=== PATIENT | male | born 1945 | race Caucasian/White ===

== ENCOUNTER 2021-02-03 08:48 | Outpatient (CLI) | payer MEDICARE, SELFPAY ==
--- NOTE | 2021-02-03 09:05 | XR_ITS ---
WS: [id number] Exam: XR hip RT 2-3V wo/w pel* [id number] Date/Time of Exam: 02/03/2021 9:07 AM Reason For Exam: PAIN IN RIGHT HIP No acute fracture or dislocation. There is end stage osteoarthritis with [id number] articulation. Subcortical cyst formation in the femoral head and the acetabulum. Prominent marginal osteophyte proj ects from the superior lateral acetabulum. Normal soft tissues. XR/XR hip RT 2-3V wo/w pel* [id number] IMPRESSION: 1. 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
== END 2021-02-03 08:49 | disposition home or self-care (01) ==
PROVIDERS: PCP Family Medicine; Visit Provider Family Medicine
DX: M25.551 Pain in right hip (principal); M16.11 Unilateral primary osteoarthritis, right hip
CPT/HCPCS: 73502

== ENCOUNTER 2021-03-07 14:44 | Outpatient (CLI) | payer MEDICARE, SELFPAY ==
--- NOTE | 2021-03-07 14:56 | USCV_ITS ---
CachorroRajan wagner Age: 75 Gender: M : 1945 Exam Date: 03/07/2021 15:27 Ordering Phys: Gabriela Russo MD Technologist: Marisa Guzman Exam Location: [facility] [place] Indication: PAIN IN RT LEG HISTORY: Pain in Rt Leg with some swelling PROCEDURES: Venous duplex imaging was performed in only the right lower extremity. The following venous structures were evaluated: common femoral vein, profunda vein, proximal portion of the greater saphenous vein, superficial femoral vein, and the popliteal vein. In addition, the posterior tibial and peroneal trunk were evaluated. Serial compression, augmentation maneuvers, and spectral Doppler flow evaluation were performed. FINDINGS: Normal 2-D Doppler and augmentation and compressibility throughout the lower extremity venous structures. Additional imaging through the proximal calf veins also reveals no thrombus. Limited evaluation of the greater saphenous vein is patent with no thrombus.. CONCLUSIONS No evidence of right lower extremity DVT. Maxwell Faustin MD (Electronically Signed) Final Date: 07 March 2021 17:48 S
== END 2021-03-07 14:45 | disposition home or self-care (01) ==
PROVIDERS: PCP Family Medicine; Visit Provider Family Medicine
DX: M79.661 Pain in right lower leg (principal)
CPT/HCPCS: 93971

== ENCOUNTER 2021-05-14 12:33 | Emergency (ER) | payer MEDICARE, SELFPAY ==
[2021-05-14 13:02] VITALS: BP 125/76; PULSE 89; RESP 15; TEMP 36.8; O2SAT 93; BMI 37.3
--- NOTE | 2021-05-14 13:10 | USR_ITS ---
PROCEDURE INFORMATION: Exam: US Duplex Right Lower Extremity Veins, Limited Exam date and time: 05/14/2021 1:10 PM Age: 75 years old Clinical indication: Pain; Swelling (edema) of limb; Lower extremity, right; Leg, lower; Prior surgery; Surgery date: <1 month; Surgery type: Right hip replacement 05-04-21; Additional info: R leg pain and swelling, right hip replaced 4 days postop TECHNIQUE: Imaging protocol: Real-time Duplex ultrasound of the Right Lower Extremity with 2-D hwang scale, color Doppler flow and spectral waveform analysis with image documentation. Limited exam was focused on the right lower extremity veins. Total images: 30 COMPARISON: CT Abdomen/Pelvis Renal [id number] 11/05/2018 6:27 AM FINDINGS: Right deep veins: Unremarkable. The common femoral, femoral, proximal profunda femoral and popliteal veins are patent without thrombus. Normal Doppler waveforms. Normal compressibility and/or augmentation response. Right superficial veins: Unremarkable. Saphenofemoral junction is patent without thrombus. Soft tissues: Subcutaneous edema noted in the right [place]. US/[place] [id number] IMPRESSION: No evidence of deep vein thrombosis.
--- NOTE | 2021-05-14 15:20 | ED_ITS ---
HPI - Extremity Problem General: Chief complaint: Extremity Problem,Nontraumatic Stated complaint: R. LEG PAIN/POSS BLOOD CLOT Time Seen by Provider: 05/14/21 15:13 History of Present Illness: HPI Narrative: Patient is a 75-year-old male comes to the ED with right leg pain and swelling. Patient had hip replacement surgery in [place] by Dr. Villalta on May 04. Patient was sent here to check for possible blood clot. Patient says the day before he had a very intense physical therapy session that he thinks worsened his right hip pain. Denies any chest pain, shortness of breath or hemoptysis. Associated symptoms: Deny chest pain, fever(s) or rash Review of Systems Const: Denies: fever(s), chills or fatigue Eyes: Denies: change in vision or eye discomfort ENMT: Denies: throat pain, odynophagia, nasal discharge or nasal congestion Card: Denies: chest pain, palpitations, edema, swelling of feet/ankles, dyspnea on exertion or orthopnea Resp: Denies: dyspnea, productive cough or non-productive cough GI: Denies: abdominal pain, nausea, vomiting, diarrhea, constipation or hematochezia : Denies: flank pain, difficulty urinating, dysuria or hematuria Musc: Reports: extremity pain (Right leg pain and swelling.); Denies: neck pain, back pain or extremity swelling Skin/Breast: Denies: rash or new lesions Neuro: Denies: headache(s), numbness in extremities or weakness in extremities Physical Exam Const: COMMON NORMALS: no acute distress, patient oriented x3 and alert GENERAL APPEARANCE: cooperative and comfortable HENMT: COMMON NORMALS: normocephalic HEAD & SCALP: normocephalic MOUTH: Normal oral and palatal mucosa present THROAT: posterior oropharynx normal and uvula midline Neck/C-Spine: COMMON NORMALS: supple GENERAL: Yes normal visual inspection Resp: COMMON NORMALS: normal respiratory effort, No retractions, No use of accessory muscles and clear to auscultation bilaterally AUSCULTATION: clear to auscultation bilaterally Cardio: COMMON NORMALS: regular rate, regular rhythm, S1 normal heart sound present, S2 normal heart sound present, No gallops present (Cardio), No clicks present (Cardio), No murmurs present (Cardio) and Peripheral pulses 2+ throughout RATE: regular rate RHYTHM: regular rhythm HEART SOUNDS: S1 normal heart sound present and S2 normal heart sound present PERIPHERAL PULSES: Peripheral pulses 2+ throughout GI: COMMON NORMALS: Normal to inspection, nondistended, normoactive bowel sounds present, Soft to palpation, non-tender and no masses PALPATION: Yes Soft to palpation : COMMON NORMALS: Yes no CVA tenderness BLADDER/KIDNEY EXAM: Yes no CVA tenderness Back/Pelvis: COMMON NORMALS: no CVA tenderness Extremity: GENERAL: Yes normal exam except as noted, Yes calf tenderness (Mild right calf tenderness.) and Yes edema (1+ edema-right lower extremity. Left lower extremity normal) Neuro: COMMON NORMALS: patient oriented x3 and moves all extremities SENSORIUM/ORIENTATION: Yes alert Skin: GENERAL SKIN EXAM: dry skin Course Vital Signs: Vital signs: Vital Signs Temperature 98.2 F 05/14/21 13:02 Pulse Rate 73 05/14/21 15:48 Respiratory Rate 20 H 05/14/21 15:48 Blood Pressure 142/80 05/14/21 15:48 Pulse Oximetry 96 05/14/21 15:48 MDM - Extremity (Nontraumatic) MDM Narrative: Medical decision making narrative: Patient is a 75-year-old male comes to the ED with right leg swelling and pain. He is approximately week and a half postop right hip replacement surgery. Denies any chest pain, shortness of breath or hemoptysis. He was sent here to the ED for evaluation of high blood clot. Patient has 1+ pitting edema in right lower extremity. Ultrasound venous duplex of right lower extremity showed no DVTs or blood clots. Patient diagnosed pain and swelling of right lower extremity discharged home. Is told to follow-up with his surgeon his next appointment on Saturday, May 17. Return to ED precautions given. Patient understood agree with plan. Imaging Data^: US Vascular: Attestation: I personally reviewed and interpreted this imaging study as follows: Radiologist's impression: Rajan Ivory 75 M [address] [id number] ReportSigned Patient: Rajan Ivory HUnit #: [id number]: 4Acct#:[id number]/Sex: 75 / MADM Date: 05/14/21Loc: ERRoom/Bed:Attending Dr: Ordering Provider/Ordering MD: José Antonio Cruz Date of Service: 05/14/21 Procedure(s): [place] [address] Accession Number(s): [id number] Report Number: [id number] PROCEDURE INFORMATION: Exam: US Duplex Right Lower Extremity Veins, Limited Exam date and time: 05/14/2021 1:10 PM Age: 75 years old Clinical indication: Pain; Swelling (edema) of limb; Lower extremity, right; Leg, lower; Prior surgery; Surgery date: <1 month; Surgery type: Right hip replacement 05-04-21; Additional info: R leg pain and swelling, right hip replaced 4 days postop TECHNIQUE: Imaging protocol: Real-time Duplex ultrasound of the Right Lower Extremity with 2-D hwang scale, color Doppler flow and spectral waveform analysis with image documentation. Limited exam was focused on the right lower extremity veins. Total images: 30 COMPARISON: CT Abdomen/Pelvis Renal [id number] 11/05/2018 6:27 AM FINDINGS: Right deep veins: Unremarkable. The common femoral, femoral, proximal profunda femoral and popliteal veins are patent without thrombus. Normal Doppler waveforms. Normal compressibility and/or augmentation response. Right superficial veins: Unremarkable. Saphenofemoral junction is patent without thrombus. Soft tissues: Subcutaneous edema noted in the right calf. US/[place] [id number] IMPRESSION: No evidence of deep vein thrombosis. Dictated By:Jackson Morales MDSigned By:Jackson Morales MDSigned Date/Time:05/14/21 1440DD/ 1438 Discharge Plan Discharge Patient Disposition: Home Clinical Impression: Pain and swelling of right lower extremity Condition: Stable Discharge Orders: Discharge ED (Routine); Ordered 05/14/21 Ordered By: José Antonio Cruz Referrals: Gabriela Russo MD [Primary Care Provider] - Discharge Diet: Regular Discharge Activity: Increase activity as tolerated Patient Instructions: Leg Edema (ED) Activity Restrictions/Additional Instructions: Follow-up with medical provider at your next scheduled appointment on Saturday, May 17. Continue taking your previously prescribed pain medication as needed. You can rest and elevate right leg to help the swelling. Return to the ER or your medical provider if condition worsens. Please read and understand discharge instructions. Thank you for choosing [facility] for your healthcare needs today. Please realize this is an emergency room and that we are providing you with a medical screening exam and this may not be complete and all inclusive of all the testing and or work up that you may need to determine your ailment or severity of your illness. It is very important that you follow up as instructed or that you return to the Emergency Department should you have concerns or if your condition changes or worsens in any way. Coding Level of Care Code ED [place] Printer for Melody Singletary Exam Comprehensive
[2021-05-14 15:48] VITALS: BP 142/80; PULSE 73; RESP 20; O2SAT 96
== END 2021-05-14 15:50 | disposition home or self-care (01) ==
PROVIDERS: Emergency Provider Physician Assistant; PCP Family Medicine
DX: M79.604 Pain in right leg (principal); M79.89 Other specified soft tissue disorders
CPT/HCPCS: 93971; 99281

== ENCOUNTER → 2025-01-04 10:56 | Outpatient (BNVA) | payer MEDICARE, SELFPAY | PROVIDERS: PCP Family Medicine; Referring Provider Student in an Organized Health Care Education/Training Program; Visit Provider Anesthesiology Pain Medicine | DX: M54.2 Cervicalgia (principal); M47.22 Other spondylosis with radiculopathy, cervical region | CPT/HCPCS: 72040; 99204 ==

== ENCOUNTER → 2025-01-13 13:27 | Outpatient (BNVA) | payer MEDICARE, SELFPAY | PROVIDERS: PCP Student in an Organized Health Care Education/Training Program; Visit Provider Anesthesiology Pain Medicine | DX: M79.18 Myalgia, other site (principal); M54.2 Cervicalgia | CPT/HCPCS: 20553; 99214; J1010; J3490 ==

== ENCOUNTER 2025-04-19 09:27 | Oncology outpatient (recurring) (ONCR) | payer MEDICARE, SELFPAY | END 2025-05-09 23:59 | disposition home or self-care (01) | PROVIDERS: PCP Student in an Organized Health Care Education/Training Program; Visit Provider Internal Medicine Medical Oncology | DX: C7A.8 Other malignant neuroendocrine tumors (principal); C7B.8 Other secondary neuroendocrine tumors; Z79.899 Other long term (current) drug therapy | CPT/HCPCS: 99204; 99205 ==

== ENCOUNTER 2025-04-20 10:07 | Day surgery (SDC) | payer MEDICARE, SELFPAY ==
[2025-04-20] VITALS (7 sets, daily range): BP systolic 113–140; BP diastolic 73–91; PULSE 74–87; RESP 16–17; TEMP 36.2–36.5; O2SAT 90–95; BMI 34.4
--- NOTE | 2025-04-20 10:18 | SC_ITS ---
WS: [id number] C-arm fluoroscopy for infusion catheter placement, 04/20/2025 Clinical Data: Port-A-Cath placement Comparison: Portable chest, 04/28/2018 Findings: Dr. Tadeo inserted a infusion port into the right internal jugular vein. SC/C-arm FL for CVA 51437 Impression: Insertion of right infusion catheter.
--- NOTE | 2025-04-20 10:52 | ANES.PREANE2 ---
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 Operation Date: 04/20/25 11:40 Proposed Procedures p Insertion Central Venous Access Device Port a Cath Insertion 16495 Z95.828 C7B.8(Not Applicable) - Sd Tadeo MD Was Beta Agnieszka taken within 24 hours: N/A Was Clonidine taken within 24 hours: N/A Last intake: Intake Last Liquid Date 04/19/25 Last Liquid Time 17:00 Last Solid Date 04/19/25 Last Solid Time 17:00 Social No alcohol and No tobacco Exam alert and oriented x 3 Airway Submandibular: within normal limits Cervical ROM: within normal limits Mallampati: Class III Comments: Comments: Edentulous Anesthetic Plan ASA status: 4 Anesthesia: MAC Other: No prior issues with anesthesia NPO since yesterday evening History of CKD MALCOLM, no treatment Patient denies a history of A-fib but is on diltiazem. 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 Patient most likely has metastatic disease to the lung Plan for chemotherapy for palliative treatment option of symptom control Plan for MAC anesthesia Medications/Allergies Home Medications ?Medication ?Instructions ?Recorded ?Confirmed ?Last Taken ?Type atorvastatin 10 mg tablet (Lipitor) 10 mg PO DAILY 01/04/25 04/19/25 04/19/25 History budesonide 160 mcg-glycopyr 9 2 inh inhalation BID 01/04/25 04/19/25 Unknown History mcg-formot 4.8 mcg/actuation HFA inhaler (Breztri Aerosphere) diltiazem HCl 180 mg 180 mg PO DAILY 01/04/25 04/19/25 04/20/25 History capsule,extended release 24 hr (Cartia XT) finasteride 5 mg tablet 5 mg PO DAILY 01/04/25 04/19/25 04/19/25 History gabapentin 100 mg tablet 100 mg PO TID 01/04/25 04/19/25 04/19/25 History meloxicam 15 mg tablet 15 mg PO DAILY 01/04/25 04/19/25 04/19/25 History metformin 500 mg tablet 1,000 mg PO BID 01/04/25 04/19/25 04/19/25 History montelukast 10 mg tablet 10 mg PO DAILY 01/04/25 04/19/25 04/19/25 History oxybutynin chloride 5 mg tablet 5 mg PO TID 01/04/25 04/19/25 04/19/25 History tamsulosin 0.4 mg capsule 0.4 mg PO DAILY 01/04/25 04/19/25 04/19/25 History morphine 15 mg immediate release 15 mg PO Q8H PRN pain 30 days #60 04/19/25 04/19/25 Unknown Rx tablet tabs ondansetron HCl 4 mg tablet 4 mg PO Q6H PRN nausea and 04/19/25 04/19/25 Unknown Rx vomiting #30 tabs oxycodone 10 mg tablet 5 mg PO DAILY 04/19/25 04/19/25 04/19/25 History prochlorperazine maleate 10 mg 10 mg PO Q4H PRN mild nausea #30 04/19/25 04/19/25 Unknown Rx tablet (Compazine) tabs Allergies Allergy/AdvReac Type Severity Reaction Status Date / Time hydromorphone (From Dilaudid) Allergy ADR-Nausea Verified 04/19/25 12:55 Iodinated Contrast Media Allergy ALGY-Hives Verified 04/19/25 12:55 [facility] Anesthesia Social History Smoking and tobacco/nicotine status: former use of tobacco/nicotine Data Anesthesia 04/20/25 10:55
--- NOTE | 2025-04-20 10:57 | ECG_ITS ---
[facility] Date: 2025-04-20 Pat Name: Rajan Ivory Department: Room: Gender: Male School Counsellor: : 1945 Requested By: Sd Clark Order Number: [id number] Sury MD: Haroon Gallegos M.D. Measurements Intervals [place] Rate: 89 P: 0 MO: 0 QRS: -11 QRSD: 80 T: 29 QT: 328 QTc: 400 Interpretive Statements NORMAL SINUS RHYTHM WITH PREMATURE ATRIAL CONTRACTIONS ABNORMAL RHYTHM ECG Compared to ECG 11/05/2018 03:10:13 VENTRICULAR PREMATURE COMPLEXES NO LONGER PRESENT Electronically Signed On 04-21-2025 22:25:55 CDT by Haroon Gallegos M.D. [email or web address]
[2025-04-20 11:12] LABS: Hematocrit 35.4 % (37-53); Hemoglobin 11.10 g/dL (11.27-16.99); Mean Corpuscular HGB Conc 31.4 g/dL (30-55); Mean Corpuscular Hemoglobin 28.4 pg (27-33); Mean Corpuscular Volume 90.5 fl (82-101); Nucleated Red Blood Cells % 0 %; Platelet Count 431 10^3/cmm (157-399); Red Blood Count 3.91 10^6/uL (3.85-5.65); White Blood Count 15.54 10^3/uL (3.29-11.43)
[2025-04-20 11:28] LABS: Blood Urea Nitrogen 22 mg/dL (8-23); Calcium 9.2 mg/dL (8.5-10.5); Carbon Dioxide 24 mmol/L (22-29); Chloride 99 mmol/L (98-107); Creatinine Clr Calc Pharmacy 38.3577; Glucose 170 mg/dL (65-115); Osmolality Calculated 289 mOsm/kg (285-295); Sodium 136 mmol/L (136-145)
[2025-04-20 11:29] LABS: Anion Gap 18.2 (5-19); Potassium 5.2 mmol/L (3.5-5.1)
--- NOTE | 2025-04-20 12:07 | W.PM.OPSUD ---
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
[2025-04-20] MEDS: ceFAZolin 2,000 mg SDV 2000 MG IVP (12:17)
[2025-04-20] MEDS: heparin, porcine 1,000 unit/mL INJ 10 mL 10000 UNIT IRRIGATION (12:27)
[2025-04-20] MEDS: BUPivacaine 0.25% INJ 10 mL INJECTION (12:41)
[2025-04-20] MEDS: lidocaine-epi 1% 20 mL INJ INJECTION (12:41)
--- NOTE | 2025-04-20 14:10 | ANE.PACU2 ---
Inpatient post-anesthesia follow up: Airway intact: Yes Vital signs: Temperature 97.2 F Pulse Rate 79 Respiratory Rate 16 Blood Pressure 124/84 Pulse Oximetry 94 Oxygen Delivery Me thod Nasal Cannula Oxygen Flow Rate 2 Fraction of Inspir ed Oxygen Hydration adequate: Yes Nausea and vomiting: No Pain level: 2 Mental status: Baseline
--- NOTE | 2025-05-03 10:38 | PM.OP ---
Operative Report Date of procedure: April 20, 2025 Pre-op diagnosis: Neuroendocrine tumor Post-op diagnosis: same Post-op findings: Tip of catheter at atriocaval junction confirmed with intraoperative fluoroscopy Procedure done: Port-A-Cath placement, intraoperative fluoroscopy Implants: Port-A-Cath Specimens removed/disposition: N/A Pathology: none sent Surgeon: Sd Tadeo MD Chapter Relations Administrator: N/A Anesthesia: MAC Estimated blood loss (mL): 10 Complications: N/A Findings: Tip of catheter at atriocaval junction confirmed with intraoperative fluoroscopy Condition: stable Disposition: same day Brief History: 79-year-old male with history of neuroendocrine tumor. Discussed risk and benefits and patient agreed to proceed with Port-A-Cath placement. Procedure: Patient was brought into the operating room and a timeout was carried out. Procedure was done under MAC. Patient was placed supine with the arms tucked and in Trendelenburg. Patient was prepped and draped in the usual sterile fashion. Using ultrasound guidance the right internal jugular vein was accessed. A guidewire was then placed down to the atriocaval junction using fluoroscopy. The finder needle was removed and the guidewire was secured. I then turned my attention to creating a pocket over the right chest. Make sure to locally infiltrated using plain lidocaine and bupivacaine at the site of the pocket and throughout the tunnel site. I confirmed adequate hemostasis at the pocket. I then proceeded to place the port that was already preassembled and flushed with heparinized saline and the chest pocket. I tunneled the catheter from the chest to the neck at the site where I accessed the internal jugular vein. I measured and adjusted the length of the catheter so it would reach the atrial caval junction. At this point, I used a dilator to dilate the tract into the internal jugular vein using fluoroscopy. I removed the guidewire and proceeded to thread the central venous catheter through the introducer. In the process, I removed the sheath as a completely pushed the catheter into the internal jugular vein. I then confirmed adequate placement of the catheter by performing intraoperative interpretation of fluoroscopy. The tip of the catheter was confirmed to be placed in the atriocaval junction. There were no kinks noted throughout the trajectory of the catheter. I then proceeded to test the port and was satisfied with its functionality. I proceeded to flushed the catheter without any issues. I then hep-locked the port. Skin was closed using deep dermal 3-0 Vicryl, subcuticular 4-0 Monocryl, and Dermabond. Patient was then transferred to PACU without any complications.
== END 2025-04-20 14:16 | disposition home or self-care (01) ==
PROVIDERS: Student in an Organized Health Care Education/Training Program; PCP Student in an Organized Health Care Education/Training Program; Visit Provider Student in an Organized Health Care Education/Training Program
PROC: (CPT 36561; principal; 2025-04-20 11:30)
DX: C7B.8 Other secondary neuroendocrine tumors (principal); N18.9 Chronic kidney disease, unspecified; Z87.891 Personal history of nicotine dependence; Z79.84 Long term (current) use of oral hypoglycemic drugs
CPT/HCPCS: 36561; 36415; 36416; 77001; 80048; 82962; 85025; 93005; A7015; C1788; J0690; J1644; J2704; J3010; J3490; J7030; J9999

== ENCOUNTER 2025-04-27 15:43 | Emergency (ER) | payer MEDICARE, SELFPAY ==
[2025-04-27 15:45] VITALS: BP 133/61; PULSE 75; TEMP 36.7; O2SAT 93; BMI 35.0
--- NOTE | 2025-04-27 16:23 | W.ED.ABDPA2 ---
HPI - Abdominal Pain General: Chief Complaint: Abdominal Pain Stated Complaint: all over stabing pain Time Seen by Provider: 04/27/25 16:18 History of Present Illness: 79-year-old male presents emergency room complaining of abdominal pain for last several days. Describes it as stabbing allover abdominal pain. Is unable to eat or drink well. 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 Was diagnosed earlier this summer. Patient has peritoneal carcinomatosis as well. He was seen 8 days ago and discussed palliative chemotherapy with oncology. Associated Symptoms: Denies chills, dysuria and fever(s) Related Data Home Medications ?Medication ?Instructions ?Recorded ?Confirmed atorvastatin 10 mg tablet (Lipitor) 10 mg PO DAILY 01/04/25 04/19/25 budesonide 160 mcg-glycopyr 9 2 inh inhalation BID 01/04/25 04/19/25 mcg-formot 4.8 mcg/actuation HFA inhaler (Breztri Aerosphere) diltiazem HCl 180 mg 180 mg PO DAILY 01/04/25 04/19/25 capsule,extended release 24 hr (Cartia XT) finasteride 5 mg tablet 5 mg PO DAILY 01/04/25 04/19/25 gabapentin 100 mg tablet 100 mg PO TID 01/04/25 04/19/25 meloxicam 15 mg tablet 15 mg PO DAILY 01/04/25 04/19/25 metformin 500 mg tablet 1,000 mg PO BID 01/04/25 04/19/25 montelukast 10 mg tablet 10 mg PO DAILY 01/04/25 04/19/25 oxybutynin chloride 5 mg tablet 5 mg PO TID 01/04/25 04/19/25 tamsulosin 0.4 mg capsule 0.4 mg PO DAILY 01/04/25 04/19/25 oxycodone 10 mg tablet 5 mg PO DAILY 04/19/25 04/19/25 Previous Rx's ?Medication ?Instructions ?Recorded morphine 15 mg immediate release 15 mg PO Q8H PRN pain 30 days #60 04/19/25 tablet tabs ondansetron HCl 4 mg tablet 4 mg PO Q6H PRN nausea and 04/19/25 vomiting #30 tabs prochlorperazine maleate 10 mg 10 mg PO Q4H PRN mild nausea #30 04/19/25 tablet (Compazine) tabs atropine 1 % eye drops 4 drp sublingual Q4H PRN 04/27/25 Secretions #5 mL bisacodyl 10 mg rectal suppository 10 mg DC DAILY PRN Constipation #5 04/27/25 (Dulcolax (bisacodyl)) ea diphenhydramine HCl 25 mg tablet 25 mg PO Q4H PRN Allergic Reaction 04/27/25 #5 tabs hydroxyzine HCl 25 mg tablet 25 mg PO TID PRN Itching #5 tabs 04/27/25 lorazepam 2 mg/mL oral concentrate 2 mg sublingual Q4H PRN 04/27/25 Anxiety/Seizure #30 mL morphine concentrate 100 mg/5 mL 20 mg sublingual DIRECTED PRN 04/27/25 (20 mg/mL) oral solution Pain/SOB 14 days #30 mL ondansetron 4 mg disintegrating 4 mg translingual Q4H PRN Nausea 04/27/25 tablet #5 tabs Allergies Allergy/AdvReac Type Severity Reaction Status Date / Time hydromorphone (From Dilaudid) Allergy ADR-Nausea Verified 04/27/25 15:53 Iodinated Contrast Media Allergy ALGY-Hives Verified 04/27/25 15:53 Review of Systems Const: Denies: fever(s) or chills Card: Denies: chest pain Resp: Denies: dyspnea GI: Denies: abdominal pain : Denies: dysuria, urinary frequency or urinary urgency Musc: Denies: neck pain or back pain Skin/Breast: Denies: rash PFSH ED PFSH: Social History Smoking and tobacco/nicotine status: former use of tobacco/nicotine Physical Exam Const: GENERAL APPEARANCE: cooperative ORIENTATION/CONSCIOUSNESS: Yes awake, Yes oriented to person, Yes oriented to place and Yes oriented to time HENMT: COMMON NORMALS: normocephalic, atraumatic and hearing grossly normal bilaterally HEAD & SCALP: normocephalic and atraumatic Resp: COMMON NORMALS: normal respiratory effort, No retractions, No use of accessory muscles and clear to auscultation bilaterally AUSCULTATION: clear to auscultation bilaterally Cardio: COMMON NORMALS: regular rate, regular rhythm and No murmurs present (Cardio) RATE: regular rate RHYTHM: regular rhythm GI: COMMON NORMALS: Soft to palpation and No hepatosplenomegaly present AUSCULTATION: Yes normoactive bowel sounds PALPATION: Yes Soft to palpation, No Tenderness to palpation present (GI), No Guarding due to palpation present (GI) and Yes No hepatosplenomegaly present Extremity: COMMON NORMALS: normal to inspection, capillary refill normal, no clubbing, cyanosis or edema, no calf tenderness and no pedal edema Neuro: SENSORIUM/ORIENTATION: Yes oriented to person, Yes oriented to place and Yes oriented to time Skin: COMMON NORMALS: no rashes or lesions noted GENERAL SKIN EXAM: no rashes or lesions noted Course Vital Signs: Vital signs: Vital Signs Temperature 98.0 F 04/27/25 15:45 Pulse Rate 91 04/27/25 18:40 Blood Pressure 123/90 04/27/25 18:40 Pulse Oximetry 96 04/27/25 18:40 Oxygen Delivery Me thod Room Air 04/27/25 15:45 MDM - Abdominal Pain Medical Decision Making Neuroendocrine tumor of the bowel with partial obstruction with significant metastasis to the omentum and the lung. Discussed possible options. Patient is not a surgical candidate. Discussed with on-call surgery they concurred. After long discussion patient does not want to pursue any treatment and prefer to go home on hospice.. Will discharge. We have contacted hospice discharge patient home on hospice comfort pack. If he changes mind or is unable control discomfort can return. is with the patient and expressed understanding. Medical Records I reviewed the patient's medical records. Lab Data I reviewed the patient's lab results. 04/27/25 16:14 04/27/25 16:14 Labs/Radiology: Radiology Impressions Abdomen/Pelvis CT 04/27/25 16:38 IMPRESSION: 1. Large infiltrating tumor of the ascending colon with extensive metastatic disease involving the mesenteric fat of the abdomen 2. Multiple metastatic lung lesions 3. Mild dilatation of the terminal ileum may indicate partial obstruction due to the colonic tumor 4. A benign renal cyst or cysts have been detected. No further follow-up imaging is required. COMMENTS: Consistent with the [employer]'s Incidental Findings Committee white paper (J Am Eryn Radiol 2018): Any incidental renal lesion less than 1 cm or classified as too small to characterize, or any incidental cystic renal lesion characterized as simple-appearing, is likely benign. No follow-up imaging is recommended for these lesions per consensus recommendations based on imaging criteria. Laboratory Results WBC 11.12 10^3/uL (3.29-11.43) 04/27/25 16:14 RBC 3.81 10^6/uL (3.85-5.65) L 04/27/25 16:14 Hgb 10.30 g/dL (11.27-16.99) L 04/27/25 16:14 Hct 33.7 % (37-53) L 04/27/25 16:14 MCV 88.5 fl (82-101) 04/27/25 16:14 MCH 27.0 pg (27-33) 04/27/25 16:14 MCHC 30.6 g/dL (30-55) 04/27/25 16:14 RDW 14.1 % (12.1-15.1) 04/27/25 16:14 Plt Count 418 10^3/cmm (157-399) H 04/27/25 16:14 MPV 10.0 fL (7.4-10.4) 04/27/25 16:14 Neut % (Auto) 66.4 % 04/27/25 16:14 Lymph % (Auto) 22.0 % 04/27/25 16:14 [place] % (Auto) 10.1 % 04/27/25 16:14 Eos % (Auto) 0.7 % 04/27/25 16:14 Baso % (Auto) 0.4 % 04/27/25 16:14 Neut # (Auto) 7.37 10^3/uL (1.8-7.7) 04/27/25 16:14 Lymph # (Auto) 2.5 10^3/uL (0.8-4.8) 04/27/25 16:14 [place] # (Auto) 1.1 10^3/uL (0.2-0.9) H 04/27/25 16:14 Eos # (Auto) 0.1 10^3/uL (0.0-0.8) 04/27/25 16:14 Baso # (Auto) 0.1 10^3/uL (0.0-0.1) 04/27/25 16:14 Nucleated RBC % (auto) 0 % 04/27/25 16:14 Nucleated RBCs # 0.0 /100WBC 04/27/25 16:14 Sodium 138 mmol/L (136-145) 04/27/25 16:14 Potassium 4.7 mmol/L (3.5-5.1) 04/27/25 16:14 Chloride 100 mmol/L (98-107) 04/27/25 16:14 Carbon Dioxide 23 mmol/L (22-29) 04/27/25 16:14 Anion Gap 19.7 (5-19) H 04/27/25 16:14 BUN 23 mg/dL (8-23) 04/27/25 16:14 Creatinine 1.4 mg/dL (0.7-1.2) H 04/27/25 16:14 GFR Calculation Not Reportable 04/27/25 16:14 Glucose 148 mg/dL (65-115) H 04/27/25 16:14 Calculated Osmolality 292 mOsm/kg (285-295) 04/27/25 16:14 Calcium 8.9 mg/dL (8.5-10.5) 04/27/25 16:14 Total Bilirubin 0.3 mg/dL (0.15-1.2) 04/27/25 16:14 AST 15 U/L (0-40) 04/27/25 16:14 ALT 12 U/L (0-41) 04/27/25 16:14 Alkaline Phosphatase 69 U/L (40-130) 04/27/25 16:14 Total Protein 7.1 g/dL (6.6-8.7) 04/27/25 16:14 Albumin 3.4 g/dL (3.5-5.2) L 04/27/25 16:14 Globulin 3.7 g/dL (1.3-4.6) 04/27/25 16:14 Lipase 31 U/L (13-60) 04/27/25 16:14 All radiology interpretation(s) finalized by discharge Discharge Plan Discharge Patient Disposition: Home Clinical Impression: Neuroendocrine carcinoma metastatic to lung, Partial bowel obstruction Condition: Stable Prescriptions: New morphine concentrate 100 mg/5 mL (20 mg/mL) Solution 20 mg sublingual DIRECTED MDD N/A PRN (Reason: Pain/SOB) 14 Days Qty: 30 0RF Rx Instructions: 0.25ml-1ml q1H PRN may increase to 0.5ml-1ml Q1H PRN bisacodyl [Dulcolax (bisacodyl)] 10 mg Suppository 10 mg DC DAILY PRN (Reason: Constipation) Qty: 5 0RF Rx Instructions: 1 suppository per rectum every day PRN for constipation. diphenhydramine HCl 25 mg Tablet 25 mg PO Q4H PRN (Reason: Allergic Reaction) Qty: 5 0RF Rx Instructions: Take one tablet by mouth every 4 hours as needed for allergic reaction hydroxyzine HCl 25 mg Tablet 25 mg PO TID PRN (Reason: Itching) Qty: 5 0RF Rx Instructions: Take 1 tablet by mouth as needed three times a day for itching atropine 1 % Drops 4 drp sublingual Q4H PRN (Reason: Secretions) Qty: 5 0RF Rx Instructions: 4 drops SL q 4 hours PRN for terminal congestion/excessive secretions. ondansetron 4 mg Tablet,Disintegrating 4 mg translingual Q4H PRN (Reason: Nausea) Qty: 5 0RF Rx Instructions: Dissolve 1 tablet under tongue every 4 hours PRN for nausea lorazepam 2 mg/mL Concentrate 2 mg sublingual Q4H PRN (Reason: Anxiety/Seizure) Qty: 30 0RF Rx Instructions: 0.25ml-1ml q4H PRN Anxiety/Seizure Start 0.25ml may increase to 0.5ml-1ml q4H No Action metformin 500 mg tablet 1,000 mg PO BID finasteride 5 mg tablet 5 mg PO DAILY meloxicam 15 mg tablet 15 mg PO DAILY oxybutynin chloride 5 mg tablet 5 mg PO TID tamsulosin 0.4 mg capsule 0.4 mg PO DAILY atorvastatin [Lipitor] 10 mg tablet 10 mg PO DAILY diltiazem HCl [Cartia XT] 180 mg capsule,extended release 24hr 180 mg PO DAILY montelukast 10 mg tablet 10 mg PO DAILY gabapentin 100 mg tablet 100 mg PO TID Breztri Aerosphere 160-9-4.8 mcg/actuation HFA aerosol inhaler 2 inh inhalation BID oxycodone 10 mg tablet 5 mg PO DAILY morphine 15 mg tablet 15 mg PO Q8H PRN (Reason: pain) 30 Days Qty: 60 0RF ondansetron HCl 4 mg tablet 4 mg PO Q6H PRN (Reason: nausea and vomiting) Qty: 30 3RF prochlorperazine maleate [Compazine] 10 mg tablet 10 mg PO Q4H PRN (Reason: mild nausea) Qty: 30 3RF Discharge Orders: Discharge ED (Routine); Ordered 04/27/25 Ordered By: Flaco Price Referrals: Olivia Tao DO [Primary Care Provider] Discharge Diet: Usual diet Discharge Activity: Resume usual activity Patient Instructions: Opioid Safety, Pain Management, Patient Portal & Jazmine Instructions Activity Restrictions/Additional Instructions: Thank you for choosing [facility] for your healthcare needs today. It is very important that you follow up as instructed or that you return to the Emergency Department should you have concerns or if your condition changes or worsens in any way. Print Language: Somali Coding Level of Care Code ED Bottom Sprayer for Melody Singletary
[2025-04-27 16:29] LABS: Hematocrit 33.7 % (37-53); Hemoglobin 10.30 g/dL (11.27-16.99); Mean Corpuscular HGB Conc 30.6 g/dL (30-55); Mean Corpuscular Hemoglobin 27.0 pg (27-33); Mean Corpuscular Volume 88.5 fl (82-101); Nucleated Red Blood Cells % 0 %; Platelet Count 418 10^3/cmm (157-399); Red Blood Count 3.81 10^6/uL (3.85-5.65); White Blood Count 11.12 10^3/uL (3.29-11.43)
--- NOTE | 2025-04-27 16:38 | CTR_ITS ---
PROCEDURE INFORMATION: Exam: CT Abdomen And Pelvis Without Contrast Exam date and time: 04/27/2025 4:55 PM Age: 79 years old Clinical indication: Nausea and vomiting; Abdominal pain; Localized; Lower; Prior surgery; Surgery date: 6+ months; Surgery type: Spinal stimulator, port, RT hip; Additional info: Abd pain, changed to without due to allergy to iodine TECHNIQUE: Imaging protocol: Computed tomography of the abdomen and pelvis without contrast. Radiation optimization: All CT scans at this facility use at least one of these dose optimization techniques: automated exposure control; mA and/or kV adjustment per patient size (includes targeted exams where dose is matched to clinical indication); or iterative reconstruction. COMPARISON: CT kidney stone [id number] 11/05/2018 6:27 AM RADIATION DOSE METRICS: Total DLP (mGy-cm): 1065.72 FINDINGS: Tubes, catheters and devices: There is an epidural neurostimulator in the thoracic spine. Lungs: There are numerous foci of nodular consolidation involving both lung bases. Liver: Normal. No mass. Gallbladder and biliary ducts: Normal. No calcified stones. No ductal dilation. Pancreas: Normal. No ductal dilation. Spleen: Normal. No splenomegaly. Adrenal glands: Normal. No mass. Kidneys and ureters: 3 cm left renal cyst noted. Stomach and bowel: There is a large infiltrating tumor involving the ascending colon. The tumor extends from the mid cecum up to the hepatic flexure for a total length of about 11 cm. The tumor extends outside the wall of the colon and there are numerous surrounding mesenteric nodules throughout this area. The terminal ileum is mildly dilated. No other bowel distension noted. Appendix: No evidence of appendicitis. Intraperitoneal space: A 1 cm rounded nodule involves the left side of the greater omentum in the left upper quadrant anteriorly. Multiple small nodules are noted in the mesenteric fat of the right paracolic gutter, posterior to the right kidney. Vasculature: Unremarkable. No abdominal aortic aneurysm. Lymph nodes: Unremarkable. No enlarged lymph nodes. Urinary bladder: Unremarkable as visualized. Reproductive: Unremarkable as visualized. Bones/joints: A right hip prosthesis is well seated and well aligned. Soft tissues: An umbilical hernia is noted containing small bowel and a few soft tissue nodules are noted within the hernia sac. CT/CT abdomen pelvis wo con [id number] IMPRESSION: 1. Large infiltrating tumor of the ascending colon with extensive metastatic disease involving the mesenteric fat of the abdomen 2. Multiple metastatic lung lesions 3. Mild dilatation of the terminal ileum may indicate partial obstruction due to the colonic tumor 4. A benign renal cyst or cysts have been detected. No further follow-up imaging is required. COMMENTS: Consistent with the [employer]'s Incidental Findings Committee white paper (J Am Eryn Radiol 2018): Any incidental renal lesion less than 1 cm or classified as too small to characterize, or any incidental cystic renal lesion characterized as simple-appearing, is likely benign. No follow-up imaging is recommended for these lesions per consensus recommendations based on imaging criteria.
[2025-04-27 16:48] LABS: Alanine Aminotransferase 12 U/L (0-41); Albumin Level 3.4 g/dL (3.5-5.2); Alkaline Phosphatase 69 U/L (40-130); Anion Gap 19.7 (5-19); Aspartate Amino Transferase 15 U/L (0-40); Blood Urea Nitrogen 23 mg/dL (8-23); Calcium 8.9 mg/dL (8.5-10.5); Carbon Dioxide 23 mmol/L (22-29); Chloride 100 mmol/L (98-107); Creatinine Clr Calc Pharmacy 47.0022; Globulin 3.7 g/dL (1.3-4.6); Glucose 148 mg/dL (65-115); Lipase 31 U/L (13-60); Osmolality Calculated 292 mOsm/kg (285-295); Potassium 4.7 mmol/L (3.5-5.1); Sodium 138 mmol/L (136-145); Total Protein 7.1 g/dL (6.6-8.7)
[2025-04-27] MEDS: ondansetron 2 mg/ML SDV 2 mL 4 MG IVP (17:28)
[2025-04-27] MEDS: fentaNYL 50 mcg/mL INJ 2mL IVP (17:29)
[2025-04-27 18:23] VITALS: BP 123/90; PULSE 91; O2SAT 95
[2025-04-27 18:40] VITALS: BP 123/90; PULSE 91; O2SAT 96
== END 2025-04-27 18:45 | disposition home or self-care (01) ==
PROVIDERS: Emergency Medicine; Emergency Provider Family Medicine; PCP Student in an Organized Health Care Education/Training Program
DX: K56.690 Other partial intestinal obstruction (principal); C18.2 Malignant neoplasm of ascending colon; C78.00 Secondary malignant neoplasm of unspecified lung; Z79.84 Long term (current) use of oral hypoglycemic drugs; Z87.891 Personal history of nicotine dependence
CPT/HCPCS: 36415; 74176; 80053; 83690; 85025; 96374; 96375; 99285; J2405; J3010